=== PATIENT | male | born 1980 ===

== ENCOUNTER 2021-01-12 00:24 | Emergency (ER) | payer BC ==
[2021-01-12 01:05] LABS: Basophils # (Auto) 0.1 K/mm3 (0.0-0.1); Basophils % (Auto) 0.7 % (0.0-1.8); Eosinophils # (Auto) 0.2 K/mm3 (0.0-0.4); Eosinophils % (Auto) 1.9 % (0.0-4.3); Hematocrit 44.3 % (35.5-45.6); Hemoglobin 15.1 gm/dl (11.8-15.2); Lymphocytes # (Auto) 2.1 K/mm3 (1.2-5.4); Lymphocytes % (Auto) 22.5 % (13.4-35.0); Mean Corpuscular HGB Conc 34 % (32-34); Mean Corpuscular Volume 91 fl (84-94); Monocytes # (Auto) 0.9 K/mm3 (0.0-0.8); Monocytes % (Auto) 9.5 % (0.0-7.3); Platelet Count 249 K/mm3 (140-440); Red Blood Count 4.87 M/mm3 (3.65-5.03); Red Cell Distribution Width 14.6 % (13.2-15.2)
--- NOTE | 2021-01-12 01:23 | Emergency Department Report ---
ED Chest Pain HPI - General Chief Complaint: Chest Pain Stated Complaint: CHEST PAINS Time Seen by Provider: 01/12/21 01:09 Source: patient Mode of arrival: Ambulatory Limitations: No Limitations - History of Present Illness Initial Comments: This is a 40-year-old male presents to the emergency department with complaint of left-sided chest pain with radiation down the left arm that started about 1 hour prior to presentation. It is associated with some shortness of breath and sweating. He denies any fever, nausea, vomiting, back pain or abdominal pain. He has not taken anything for symptoms prior to presentation. No known aggravating or alleviating factors. The patient describes the pain as a burning sensation as well as a tightness. He has a past medical history of hypertension for which he takes metoprolol. He denies any tobacco or illicit drug use. No recent travel or sick contacts at home. The patient's mother had her first CO in her 40s. His primary care physician is a Dr. Mejía. Severity scale (0 -10): 10 - Related Data Previous Rx's Medication Instructions Recorded Last Taken Type Famotidine [Pepcid] 20 mg PO BID #20 tablet 01/12/21 Unknown Rx Allergies Allergy/AdvReac Type Severity Reaction Status Date / Time aspirin Allergy Anaphylaxis Verified 01/12/21 00:52 Heart Score - HEART Score History: Moderately suspicious EKG: Normal Age: < 45 Risk factors: 1-2 risk factors Troponin: < normal limit HEART Score: 2 - EKG Read Time Time EKG Completed: 00:42 EKG Read Time: 00:42 ED Review of Systems ROS: Stated complaint: CHEST PAINS Other details as noted in HPI Comment: All other systems reviewed and negative Constitutional: denies: chills, fever Eyes: denies: eye pain, vision change ENT: denies: ear pain, throat pain Respiratory: shortness of breath. denies: cough Cardiovascular: chest pain. denies: palpitations, edema Gastrointestinal: denies: abdominal pain, vomiting Genitourinary: denies: dysuria, discharge Musculoskeletal: denies: back pain, joint swelling Skin: denies: rash, lesions Neurological: denies: headache, weakness ED Past Medical Hx - Past Medical History Previous Medical History?: Yes Hx Hypertension: Yes - Social History Smoking Status: Never Smoker - Medications Home Medications: Home Medications Medication Instructions Recorded Confirmed Last Taken Type Famotidine [Pepcid] 20 mg PO BID #20 tablet 01/12/21 Unknown Rx ED Physical Exam - General Limitations: No Limitations - Other Other exam information: GENERAL: The patient is well-developed well-nourished. HENT: Normocephalic. Atraumatic. Patient has moist mucous membranes. EYES: Extraocular motions are intact. NECK: Supple. Trachea is midline. CHEST/LUNGS: Clear to auscultation. There is no respiratory distress noted. HEART/CARDIOVASCULAR: Regular. There is no tachycardia. There is no murmur. ABDOMEN: Abdomen is soft, nontender. Patient has normal bowel sounds. SKIN: Skin is warm and dry. NEURO: The patient is awake, alert, and oriented. The patient is cooperative. The patient has no focal neurologic deficits. Normal speech. MUSCULOSKELETAL: There is no tenderness or deformity. There is no limitation range of motion. ED Course Vital Signs 01/12/21 01/12/21 01/12/21 00:55 01:16 01:30 Temperature 98.3 F Pulse Rate 85 102 H 87 Respiratory 20 18 15 Rate Blood Pressure 126/91 Blood Pressure 149/93 [Right] O2 Sat by Pulse 97 96 Oximetry 01/12/21 01/12/21 01/12/21 01:46 02:00 02:16 Temperature Pulse Rate 84 82 94 H Respiratory 18 17 13 Rate Blood Pressure 131/87 131/87 121/81 Blood Pressure [Right] O2 Sat by Pulse 96 97 96 Oximetry 01/12/21 01/12/21 01/12/21 02:30 02:46 03:00 Temperature Pulse Rate 85 81 80 Respiratory 13 14 13 Rate Blood Pressure 121/81 146/74 146/74 Blood Pressure [Right] O2 Sat by Pulse 96 98 96 Oximetry 01/12/21 01/12/21 01/12/21 03:16 03:30 03:46 Temperature Pulse Rate 83 80 80 Respiratory 13 14 12 Rate Blood Pressure 139/87 139/87 150/94 Blood Pressure [Right] O2 Sat by Pulse 98 97 98 Oximetry 01/12/21 01/12/21 01/12/21 04:00 04:16 04:30 Temperature Pulse Rate 81 76 81 Respiratory 13 15 12 Rate Blood Pressure 150/94 149/89 149/89 Blood Pressure [Right] O2 Sat by Pulse 97 98 96 Oximetry KASSANDRA score - Kassandra Score Age > 65: (0) No Aspirin use within the Past 7 Days: (0) No 3 or more CAD Risk Factors: (0) No 2 or more Angina events in past 24 hrs: (1) Yes Known CAD with more than 50% Stenosis: (0) No Elevated Cardiac Markers: (0) No ST Deviation Greater than 0.5mm: (0) No KASSANDRA Score: 1 ED Medical Decision Making - Lab Data Result diagrams: 01/12/21 00:52 01/12/21 00:52 Lab Results 01/12/21 01/12/21 01/12/21 Range/Units 00:52 00:52 01:49 WBC 9.4 (4.5-11.0) K/mm3 RBC 4.87 (3.65-5.03) M/mm3 Hgb 15.1 (11.8-15.2) gm/dl Hct 44.3 (35.5-45.6) % MCV 91 (84-94) fl MCH 31 (28-32) pg MCHC 34 (32-34) % RDW 14.6 (13.2-15.2) % Plt Count 249 (140-440) K/mm3 Lymph % (Auto) 22.5 (13.4-35.0) % [place] % (Auto) 9.5 H (0.0-7.3) % Eos % (Auto) 1.9 (0.0-4.3) % Baso % (Auto) 0.7 (0.0-1.8) % Lymph # (Auto) 2.1 (1.2-5.4) K/mm3 [place] # (Auto) 0.9 H (0.0-0.8) K/mm3 Eos # (Auto) 0.2 (0.0-0.4) K/mm3 Baso # (Auto) 0.1 (0.0-0.1) K/mm3 Seg Neutrophils % 65.4 (40.0-70.0) % Seg Neutrophils # 6.1 (1.8-7.7) K/mm3 D-Dimer < 135.00 (0-234) ng/mlDDU Sodium 140 (137-145) mmol/L Potassium 3.9 (3.6-5.0) mmol/L Chloride 100.9 (98-107) mmol/L Carbon Dioxide 28 (22-30) mmol/L Anion Gap 15 mmol/L BUN 14 (9-20) mg/dL Creatinine 1.0 (0.8-1.3) mg/dL Estimated GFR > 60 ml/min BUN/Creatinine Ratio 14 % Glucose 85 (75-100) mg/dL Calcium 9.1 (8.4-10.2) mg/dL Total Bilirubin 0.40 (0.1-1.2) mg/dL AST 23 (5-40) units/L ALT 41 (7-56) units/L Alkaline Phosphatase 80 (35-129) units/L Troponin T < 0.010 (0.00-0.029) ng/mL Total Protein 6.7 (6.3-8.2) g/dL Albumin 4.6 (3.9-5) g/dL Albumin/Globulin Ratio 2.2 % 01/12/21 Range/Units 03:26 WBC (4.5-11.0) K/mm3 RBC (3.65-5.03) M/mm3 Hgb (11.8-15.2) gm/dl Hct (35.5-45.6) % MCV (84-94) fl MCH (28-32) pg MCHC (32-34) % RDW (13.2-15.2) % Plt Count (140-440) K/mm3 Lymph % (Auto) (13.4-35.0) % [place] % (Auto) (0.0-7.3) % Eos % (Auto) (0.0-4.3) % Baso % (Auto) (0.0-1.8) % Lymph # (Auto) (1.2-5.4) K/mm3 [place] # (Auto) (0.0-0.8) K/mm3 Eos # (Auto) (0.0-0.4) K/mm3 Baso # (Auto) (0.0-0.1) K/mm3 Seg Neutrophils % (40.0-70.0) % Seg Neutrophils # (1.8-7.7) K/mm3 D-Dimer (0-234) ng/mlDDU Sodium (137-145) mmol/L Potassium (3.6-5.0) mmol/L Chloride (98-107) mmol/L Carbon Dioxide (22-30) mmol/L Anion Gap mmol/L BUN (9-20) mg/dL Creatinine (0.8-1.3) mg/dL Estimated GFR ml/min BUN/Creatinine Ratio % Glucose (75-100) mg/dL Calcium (8.4-10.2) mg/dL Total Bilirubin (0.1-1.2) mg/dL AST (5-40) units/L ALT (7-56) units/L Alkaline Phosphatase (35-129) units/L Troponin T < 0.010 (0.00-0.029) ng/mL Total Protein (6.3-8.2) g/dL Albumin (3.9-5) g/dL Albumin/Globulin Ratio % - EKG Data -: EKG Interpreted by Me EKG shows normal: sinus rhythm, axis, intervals, QRS complexes, ST-T waves (Early repolarization) Rate: normal - EKG Data When compared to previous EKG there are: previous EKG unavailable Interpretation: other (Sinus rhythm at 86 bpm. Normal axis, normal intervals. No ST elevation CO.) - Radiology Data Radiology results: image reviewed interpreted by me: Chest x-ray does not show any acute process. There are no pleural effusions, obvious pneumonia and there is no pneumothorax. No significant cardiomegaly. - Medical Decision Making This patient presents with some left-sided chest pain with radiation down the left arm that he describes as a tightness and a burning sensation. EKG did not have any morphology consistent with ST elevation myocardial infarction. Chest x-ray does not show any pneumonia, pleural effusions, pneumothorax, or any other acute process. The patient's labs have been mostly unremarkable including CBC, metabolic panel, negative troponins x2, and a negative D-dimer level. The patient is low on the heart and KASSANDRA score. He was given a dose of IV analgesia and was later given a GI cocktail. He was reevaluated multiple times over multiple hours and says he is feeling greatly improved and asking for discharge home. As the patient has a significant family history in his mother for an early CO, the patient has been instructed to follow-up with a electrolytic de scaler within the next few days. His contact information has been sent over to the [facility], and someone from their office should be contacting him shortly for close outpatient follow-up as per our hospitals low risk chest pain protocol. He will return to the emergency department with any worsening of his symptoms or with any acute distress. Critical Care Time: No Critical care attestation.: If time is entered above; I have spent that time in minutes in the direct care of this critically ill patient, excluding procedure time. ED Disposition Clinical Impression: Chest pain Qualifiers: Chest pain type: unspecified Qualified Code(s): R07.9 - Chest pain, unspecified Disposition: - TO HOME OR SELFCARE Is pt being admited?: No Condition: Stable Instructions: Nonspecific Chest Pain, Adult Additional Instructions: Please follow-up with a primary care physician in the next few days. I have sent your contact information over to the [facility], and someone from their office should be contacting you shortly for close outpatient follow-up. Just in case I am giving you a referral for one of their electrolytic de scaler, Dr. Diggs. Return to the emergency department with any worsening of your symptoms, new or concerning symptoms not addressed during this current emergency department visit, or with any acute distress. Prescriptions: Famotidine [Pepcid] 20 mg PO BID #20 tablet Referrals: PRIMARY MD ROBBIE [Primary Care Provider] - 2-3 Days MARTIN DIGGS MD [Staff Physician] - 2-3 Days Forms: Work/School Release Form(ED) Time of Disposition: 04:35
[2021-01-12] MEDS ORDERED: SODIUM CHLORIDE 0.9% 1000 ML 1,000 ML IV ONE (01:29)
[2021-01-12] MEDS ORDERED: MORPHINE 4 MG/1 ML INJ IV ONE (01:29)
[2021-01-12 01:31] LABS: Alanine Aminotransferase 41 units/L (7-56); Albumin 4.6 g/dL (3.9-5); BUN/Creatinine Ratio 14; Blood Urea Nitrogen 14 mg/dL (9-20); Calcium 9.1 mg/dL (8.4-10.2); Hemolysis Index 5
[2021-01-12] MEDS ORDERED: MORPHINE 2 MG/1 ML INJ ONE (01:59)
--- NOTE | 2021-01-12 02:24 | XRay Report ---
CHEST 2 VIEWS INDICATION / CLINICAL INFORMATION: Chest Pain. COMPARISON: None available. FINDINGS: SUPPORT DEVICES: None. HEART / MEDIASTINUM: No significant abnormality. LUNGS / PLEURA: No significant pulmonary or pleural abnormality. No pneumothorax. ADDITIONAL FINDINGS: No significant additional findings. IMPRESSION: 1. No acute findings. Signer Name: Lyle Frausto MD Signed: 01/12/2021 2:19 AM Workstation Name: [id number]
[2021-01-12] MEDS ORDERED: ALUM-MAG HYDROXIDE-SIMETHICONE 200-200-20MG/5ML ORAL LIQD 30 ML PO ONE (03:01)
[2021-01-12] MEDS ORDERED: LIDOCAINE VISCOUS 2% 15 ML ORAL LIQD PO ONE (03:01)
[2021-01-12 04:53] VITALS: BP 152/90
--- NOTE | 2021-01-12 10:38 | Electrocardiograph Report ---
[facility] Test Date: 2021-01-12 Test Time: 00:42:59 Pat Name: VERO LEDESMA Department: Room: Gender: M [employer] Manager: Teodoro GUTIERREZ : 1980 Requested By: UNIQUE CABEZAS Order Number: [id number] Reading MD: Yaw Hathaway Measurements Intervals [place] Rate: 86 P: 47 AK: 169 QRS: 0 QRSD: 109 T: QT: 371 QTc: 446 Interpretive Statements Sinus rhythm Probable left atrial enlargement Indeterminate axis ST elev, probable normal early repol pattern No previous ECG available for comparison Electronically Signed On 01-12-2021 10:38:08 EDT by Yaw Hathaway
== END 2021-01-12 04:49 | disposition home or self-care (01) ==
LOC: ED 00:24
DX: R07.89 Other chest pain (principal); I10 Essential (primary) hypertension; Z79.899 Other long term (current) drug therapy; Z88.6 Allergy status to analgesic agent
CPT/HCPCS: 36415; 71046; 80053; 84484; 85025; 85379; 93005; 96361; 96374; 99284; J2270; J7030